=== PATIENT | female | born 1965 | race Caucasian/White ===

== ENCOUNTER 2017-09-13 07:00 | Outpatient (RCR) | payer OTHER, SELFPAY ==
--- NOTE | 2017-07-22 07:59 | HP.PTEVAL ---
Patient's Visit Information LANI FINN is a 52 year old F referred to Physical Therapy by DO MARTA Shirley with a diagnosis of s/p L hip scope labral repair 07/03/17. Date of Evaluation: 07/22/17 Physical Therapist: Zac Carter DPT, OC - Visit Plan Frequency: 1-2x /Week Duration: 2 Months Plan: Start weekly for 6-8 weeks(increase frequency if needed)... Progress HEP for strength and ROM. Next visit add hip flexor stretch, SLR abd and add, piri stretch, ITB stretch. Educate on management of condition. - Subjective Subjective: Took out bump on L femur that was tearing labrum so got rid of the bump and cleaned up labrum. That was 07/03/17 3 weeks ago. Has been dealing with this hip pain for a long time with treatment including injections years ago and was good for a while but got worse again 6-8 weeks before surgery. Had pain with sitting and walking. Since surgery TTWB with crutches for 6 week until end July. Pain is not really a problem right now. Has some discomfort with rotation and abduction. No HEP. No pain meds. No ice needed but has polarcare that she used for a week. Sleep is good. 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 Basic aDLS, has to use son's tub shower with stool to sit. steps are OK with rail and crutches. Family is helping with housework as she cannot do what she needs to. Wants to walk for fitness and do yoga when she is better and to do elliptical. - Pain L hip joint groin Pain Intensity (Out of 10): 0 Pain Intensity Range: 0, 2 Comment: transient - Objective L hip, pt without concerns of incisions. Walks into PT with B crutches TTWB throough ball of foot, corrects to TTWB L heel toe pattern with VC. Transfers to and fro sitt I. Steps are using R and B cruthches I. PROM L hip is WNL and symmetrical with R except IR which is mildly painful. No pain at rest. Strength in R hip is 4+/5 and L hip is 4 in flexion, 4- ext, 3+ abd and ext rotation. Flexibility in ITB L min deficits, hip flexor, quad and HS min deficits. Strength B ankles and knees and AROM WFL and symmetrical. - Goals Goal 1:: Progress whena llowed by doctor to FWB ambulation without AD I without gaitdeviations. Goal Time Frame: 4-6 Weeks Goal 2:: Steps reciprocally(when allowed by doctor) without pain or gait deviations. Goal Time Frame: 4-6 Weeks Goal 3:: I approp full strength and ROM/stretch program Goal Time Frame: 4-6 Weeks Goal 4:: Pt ready to start walking for fitness without pain and back to 100% home activities. Goal Time Frame: 6-8 Weeks - Rehabilitation Potential Physical Therapy Diagnosis: s/p L hip scope Rehabilitation Potential: Excellent - Anticipated Interventions Patient/Client Instruction: Educate patient on: Condition For the Purpose of:: To decrease pain, To improve nutrient delivery to tissue Therapeutic Exercise to Include: Strength training, Flexibilty training, Passive ROM, Active ROM For the Purpose of:: To increase ROM, To improve nutrient delivery to tissue, To improve ability of physical actions for home/community/work/leisure, To improve gait and locomotor functions Cryotherapy (ice pack, ice massage): Yes For the Purpose of:: To decrease swelling/inflammation Thank you for the opportunity to evaluate your patient. For Medicare and Medicare HMO plans, please review the plan of care and approve it. It will need to be FAXED BACK to us at [phone] for Medicare purposes. Please let me know if there are questions or concerns regarding this plan of care. Physician Signature: Date:
--- NOTE | 2017-08-05 15:43 | HP.PTREVAL_ITS ---
Malia Swift DO, It has been my pleasure to treat LANI FINN over the last 3 visits for s /p L hip scope labral repair 07/03/17. Please see the progress note below for an update on the physical therapy plan of care! Subjective: Doing well. No pain. sick of crutches. Still TTWB. Exercises are going well. Hip abduction is hard but others getting easier. Objective/Function: ROM is symmetrical PROM and AROM, strength in OL abductors and extensors slightly less than R. 4- vs 4. Maintaining WB status well with crutches. Will not need further therapy prior to f/u with doctor but will continue after WB restrictions lifted. Plan Plan: f/u after doctor visit(08/15) to progress to WB ex and gait as allowed. Goals Goal 1:: Progress whena llowed by doctor to FWB ambulation without AD I without gaitdeviations. Goal Time Frame: 4-6 Weeks Goal 2:: Steps reciprocally(when allowed by doctor) without pain or gait deviations. Goal Time Frame: 4-6 Weeks Goal 3:: I approp full strength and ROM/stretch program Goal Time Frame: 4-6 Weeks Goal 4:: Pt ready to start walking for fitness without pain and back to 100% home activities. Goal Time Frame: 6-8 Weeks Anticipated Interventions Patient/Client Instruction: Educate patient on: Condition For the Purpose of:: To decrease pain, To improve nutrient delivery to tissue Therapeutic Exercise to Include: Strength training, Flexibilty training, Passive ROM, Active ROM For the Purpose of:: To increase ROM, To improve nutrient delivery to tissue, To improve ability of physical actions for home/community/work/leisure, To improve gait and locomotor functions Cryotherapy (ice pack, ice massage): Yes For the Purpose of:: To decrease swelling/inflammation Please do not hesitate to contact me at [phone] by phone or Fax: if you have questions or concerns regarding this new plan of care! Sincerely, Zac Carter, DPT, OC
--- NOTE | 2017-09-13 07:24 | HP.PTDCSUM ---
HP - PT D/C Summary It has been my pleasure to treat LANI FINN under orders from Malia Swift DO, for the diagnosis of s/p L hip scope labral repair 07/03/17 for a total of 9 visit(s). Discharge Date: 09/13/17 Please see the following information for a summary of their discharge status. - Subjective Subjective: Doing well. Stiff pain over the last two weeks after exercise. S/L bicycle is mildly painful, otherwise doing well. turning in bed can be challenging with discomfort. Working out at [facility] center. Sitting job is going well. aCTIVITIES AT HOME ARE NORMAL AND HAPPY WITH PROGRESSION. - Pain L hip joint groin Pain Intensity (Out of 10): 0 - Overall Improvement % Improvement: 90 - Objective Objective/Function: Full PROM L hip, IR still slightly uncomfortable. weakness is slightly evident in ext rot L at 4 others are 4+/5. Pt walking without deviations and jogs up steps easily. 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 - Goals Goal 1:: Progress whena llowed by doctor to FWB ambulation without AD I without gaitdeviations. Goal Progress: Goal Met Goal 2:: Steps reciprocally(when allowed by doctor) without pain or gait deviations. Goal Progress: Goal Met Goal 3:: I approp full strength and ROM/stretch program Goal Progress: Progressing Goal 4:: Pt ready to start walking for fitness without pain and back to 100% home activities. Goal Progress: Goal Met Goal 5:: Walk 3 miles, elliptical 20 min and tolerate home strength WB without pain. Goal Progress: Progressing - Plan Plan: D/C - D/C Information Discharge Comments: pT DOING VERY WELL FOR THE LAST TWO WEEKS WORKING OUT ON HER OWN AT THE [facility]. pAIN IS NOT AN ISSUE, rom AND STRENGTH ARE IMPROVING. WILL CONTINUE STRENGTH 3X/WEEK ON HER OWN AND STRETCHING DAILY AND CALL IF QUESTIONS. F/U WITH DOCTOR IS IN TWO WEEKS. If there are questions or concerns regarding this patient's physical therapy, please feel free to call me at [phone]. Thank you for the referral of this patient. Sincerely, Zac Carter, DPT, OC
== END 2017-09-13 19:00 | disposition home or self-care (01) ==
LOC: PT 07:00
PROVIDERS: Family Provider Nurse Practitioner; PCP Nurse Practitioner; Visit Provider Orthopaedic Surgery
DX: Z98.890 Other specified postprocedural states (principal)
CPT/HCPCS: 97110; 97161; 97530

== ENCOUNTER → 2018-02-20 21:22 | Outpatient (CLI) | payer OTHER, SELFPAY | PROVIDERS: Family Provider Nurse Practitioner; PCP Nurse Practitioner; Visit Provider Nurse Practitioner | DX: R30.0 Dysuria (principal) | CPT/HCPCS: 87077; 87086; 87088; 87186 ==

== ENCOUNTER → 2018-02-28 21:03 | Outpatient (CLI) | payer OTHER, SELFPAY ==
[2018-02-28 21:04] LABS: Bacteria 0 SEEN /hpf (None Seen); Mucous, Urine 0 SEEN /hpf (<or=2+); Red Blood Cells-Urine 0 SEEN /hpf (0-5); Squamous Epithelial Cells - UA 0 SEEN /hpf (5-10)
[2018-02-28 21:31] LABS: Color, Urine Yellow (Yellow); Glucose, Dipstick Normal (Normal); Ketone-Dipstick Negative (Negative); Leukocyte Esterase-Dipstick 25 /ul (Negative); Nitrite-Dipstick Negative (Negative); Occult Blood-Urine 10 /ul (Negative); Protein-Dipstick Negative (Negative); Urine Bilirubin Dipstick Negative (Negative); Urine Clarity Clear (Clear); Urine Urobilinogen Normal (Normal)
[2018-02-28 21:47] LABS: Transitional Epithelial - Ur 0-5 SEEN /hpf (0-5); White Blood Cells 0-5 SEEN /hpf (0-5)
== END ==
PROVIDERS: Family Provider Nurse Practitioner; PCP Nurse Practitioner; Visit Provider Nurse Practitioner
DX: N39.0 Urinary tract infection, site not specified (principal)
CPT/HCPCS: 81001; 87086; 87088

== ENCOUNTER → 2018-10-10 22:12 | Outpatient (CLI) | payer OTHER, SELFPAY ==
[2018-10-10 16:43] VITALS: BMI 26.8
== END ==
PROVIDERS: Family Provider Nurse Practitioner; PCP Nurse Practitioner; Referring Provider Nurse Practitioner; Visit Provider Nurse Practitioner
DX: N30.90 Cystitis, unspecified without hematuria (principal)
CPT/HCPCS: 87086; 87088

== ENCOUNTER → 2018-12-18 | Outpatient (CLI) | payer OTHER, SELFPAY ==
[2018-12-18 14:06] VITALS: BMI 24.5
[2018-12-19 00:33] LABS: Absolute Lymphocyte Count 1.06 X10^3/ul (0.83-4.51); Absolute Neutrophil Count 5.4 X10^3/uL (2.0-7.7); Basophil# 0.01 X10^3/uL; Basophil% 0.1 % (0-1); Eosinophil# 0.32 X10^3/uL; Eosinophils% 4.4 % (0-5); Hematocrit 47.4 % (37-47); Hemoglobin 15.3 g/dl (12.0-15.0); Lymphocyte # 1.06 X10^3/ul (4.0); Lymphocyte % 14.6 % (19-41); Mean Corp Hgb Conc 32.3 g/gl (32-36); Mean Corpuscular Hgb 29.4 pg (27.0-32.0); Mean Platelet Vol. 11.6 fl (6.2-12.0); Monocyte# 0.45 X10^3/uL; Monocyte% 6.2 % (0-10); Neutrophil # 5.36 X10^3/uL (2.7-7.7); Platelet Count 171 K/mm3 (150-450); RBC Distribution Width CV 14.7 % (11.6-14.6); RBC Distribution Width SD 48.2 fl (35.1-43.9); Red Blood Count 5.21 M/mm3 (4.2-5.4); White Blood Count 7.3 K/mm3 (4.4-11.0)
[2018-12-19 00:38] LABS: POSITIVE COUNT NO; POSITIVE DIFFERENTIAL NO; POSITIVE MORPHOLOGY NO
[2018-12-19 04:53] LABS: ALB/GLOB Ratio 1.4 RATIO (0.9-2.4); AST(SGOT) 23 U/L (15-37); Alanine Aminotransfer ALT/SGPT 36 U/L (13-56); Albumin, Serum 4.1 g/dL (3.2-5.0); Alkaline Phosphatase 73 U/L (45-117); Anion Gap 6 (5-15); BUN 17 mg/dL (7-18); BUN/Creat Ratio 18.5 RATIO (10-20); CRP < 2.90 mg/L (0.0-3.0); Calcium,Total 10.3 mg/dL (8.5-10.1); Chloride 107 mmol/L (98-107); Creatinine, Serum 0.92 mg/dL (0.55-1.02); EST Glomerular Filtration Rate 68 mL/min (>60); Est Glom Filt Rate - Afr Amer 82 mL/min (>60); Globulin 2.9 g/dL (2.2-4.2); Glucose 94 mg/dL (74-106); Potassium 4.1 mmol/L (3.5-5.1); Sodium Level 141 mmol/L (136-145)
== END | disposition home or self-care (01) ==
PROVIDERS: Family Provider Nurse Practitioner; PCP Nurse Practitioner; Referring Provider Nurse Practitioner; Visit Provider Nurse Practitioner
DX: N30.90 Cystitis, unspecified without hematuria (principal); R50.9 Fever, unspecified
CPT/HCPCS: 80053; 85025; 86140; 87077; 87086; 87088; 87186

== ENCOUNTER 2019-06-08 16:30 | Outpatient (RCR) | payer OTHER, SELFPAY ==
[2019-04-22 17:18] VITALS: BMI 24.7
--- NOTE | 2019-04-30 16:53 | HP.PTEVAL ---
Patient's Visit Information LANI FINN is a 54 year old F referred to Physical Therapy by CHRISTOFER Castellanos with a diagnosis of RIGHT SHOULDER PAIN. Date of Evaluation: 04/30/19 Physical Therapist: Pete Dumas, PT, Cert MDT, OCS - Visit Plan Frequency: 2x /Week Duration: 4 Weeks Plan: PT INTERVENTIONS US/EXTIM,RTC/SCAPULAR STRENGTHENING,CERVICAL/POSTURAL EX'S,. MANUAL THERAPY STM UT/LEVATOR NEEDED - Subjective Findings: This 54 y/o female presents to physical therapy with rigtt shoulder pain. Patient has h/o frozen shoulder October ,tried predisone didnt help. Shoulder pain motion helped over time. Most recently patient was having right shoulder pain affects sleeping with pain in shoulder pain ,parathesia/tingling in arm. Patient has difficuly with OH activiies ,lifting ,away from body with abduction ,putting on coat. Described as ache constant occassional sharp pain. Pateint pain is better with rest. Patient pain affects QOL and funcyion. Patient has some lateral neck pain.Patient had no x-rays.Location upper to elbow,lateral neck UT and scapular. SOCAIL: . 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 NEURO: ocassiaonlly in arm in AM,reflexes intact. PALAPTION:tender UT/levator. AROM: shoulder flexion 155 degrees pinfull arc,abd 160 degrees,ER 90,IR T6. MMT: deltoid 4-/5 mild pain,Infraspinatous 4-/5 mild pain,subscapularis 4/5,supraspinatous 4-/5 mild pain - Special Tests R Shoulder Lift Off Test - Subscapular Tear: Negative R Shoulder Drop Sign - IS Test: Negative R Shoulder Empty Can - SS: Positive R Shoulder Belly Press - SupScap: Negative R Shoulder Neer - Impingement: Positive R Shoulder Mcfarland Crow - Impingement: Positive R Shoulder Shrug Sign - OA/Adhesive Capsulitis: Negative - Goals Goal 1:: Independant with HEP Goal Time Frame: 4-6 Weeks Goal 2:: Improve posture for ADL'S Goal Time Frame: 4-6 Weeks Goal 3:: Patient to decrease right pain by 70% or> to improve function with activitioes above 90 degrees. Goal Time Frame: 4-6 Weeks Goal 4:: Patient to improve strength RTC and deltod to 4/5 without pain to improve function with ADL'S Goal Time Frame: 4-6 Weeks Goal 5:: Patient to inmprove quick dash by 5 points or > to improve QOL. Goal Time Frame: 4-6 Weeks - Rehabilitation Potential Physical Therapy Diagnosis: This patient has right shoulder pain with with h/o adhesive capsulitis in October with current symptoms of possible shoulder tendenesis,along with right cervical tightness with pain ,weakness of right RTC and decrease ROM for ADL'S and functional acivities Rehabilitation Potential: Good - Anticipated Interventions Patient/Client Instruction: Educate patient on: Condition, Plan of Care For the Purpose of:: To decrease pain, To increase ROM, To improve muscle performance and motor function, To improve ability to perform ADL's, To increase tolerance to activity/condition/position, To improve ability of physical actions for home/community/work/leisure, To improve health of tissue, To decrease soft tissue restriction, To increase flexibility/ROM, To reduce risk of recurrence, To improve ability to perform tasks related to life management Therapeutic Exercise to Include: Strength training, Postural training, Flexibilty training, Active ROM, Helen Exercises, Scapular Strength/Stabilization Comment: RTC For the Purpose of:: To decrease pain, To increase ROM, To improve muscle performance and motor function, To improve ability of physical actions for home/community/work/leisure, To improve health of tissue, To decrease soft tissue restriction, To increase flexibility/ROM, To reduce risk of recurrence Manual Therapy Techniques to Include: Soft tissue mobilization For the Purpose of:: To decrease pain, To improve nutrient delivery to tissue, To increase oxygenation perfusion TENS: Yes IF ES: Yes Cryotherapy (ice pack, ice massage): Yes Thermo therapy (hot pack): Yes Ultrasound (thermal/non thermal): Yes For the Purpose of:: To decrease pain, To increase ROM, To improve health of tissue, To decrease soft tissue restriction Thank you for the opportunity to evaluate your patient. For Medicare and Medicare HMO plans, please review the plan of care and approve it. It will need to be FAXED BACK to us at [phone] for Medicare purposes. For Medicare only, by signing this I certify the plan of care. Please let me know if there are questions or concerns regarding this plan of care. Physician Signature: Date:
--- NOTE | 2019-09-04 13:09 | HP.PTDCSUM ---
HP - PT D/C Summary It has been my pleasure to treat LANI FINN under orders from CHRISTOFER Castellanos, for the diagnosis of RIGHT SHOULDER PAIN for a total of 9 visit(s). Discharge Date: 06/08/19 Please see the following information for a summary of their discharge status. - Subjective Subjective: Pain is overall better.symptoms worse at night. Intermttant throughout day - Pain Right Shoulder Pain Intensity (Out of 10): 1 lateral neck Pain Intensity (Out of 10): 0 - Overall Improvement % Improvement: 70 - Objective Objective/Function: POSTURE: MILD FOWARD POSTURE. NEURO: INTACT. AROM: WNL. MMT: RTC4-/5 SUPRSPINATOUS/INFRASPINATOUS MILD PAIN. LATERAL DELTOID MILD PAIN - Goals Goal 1:: Independant with HEP Goal Progress: Goal Met Goal 2:: Improve posture for ADL'S Goal Progress: Goal Met Goal 3:: Patient to decrease right pain by 70% or> to improve function with activitioes above 90 degrees. Goal Progress: Goal Met Goal 4:: Patient to improve strength RTC and deltod to 4/5 without pain to improve function with ADL'S Goal Progress: Progressing Goal 5:: Patient to inmprove quick dash by 5 points or > to improve QOL. Goal Progress: Progressing - Plan Plan: RTD. POSSIBLE DIAGNOSTICS. WILL CONT HEP - D/C Information Discharge Comments: HEP. RTD If there are questions or concerns regarding this patient's physical therapy, please feel free to call me at [phone]. Thank you for the referral of this patient. Sincerely, Pete Dumas, PT, Cert MDT, OCS
== END 2019-06-08 19:00 | disposition home or self-care (01) ==
LOC: PT 16:30
PROVIDERS: Family Provider Nurse Practitioner; PCP Nurse Practitioner; Referring Provider Nurse Practitioner; Visit Provider Nurse Practitioner
DX: M75.00 Adhesive capsulitis of unspecified shoulder (principal); M79.601 Pain in right arm
CPT/HCPCS: 97014; 97035; 97110; 97140; 97162; G0283